=== PATIENT | male | born 1965 | race Caucasian/White ===

== ENCOUNTER 2024-09-11 02:41 | Inpatient (IN) | payer SELFPAY ==
[~2024-09-11] VITALS: Ht 172.7 cm; Wt 103.5 kg
[2024-09-11] VITALS (39 sets, daily range): BP systolic 124–172; BP diastolic 68–92; PULSE 80–102; RESP 15–27; TEMP 36.6–37.2; O2SAT 97–100
[2024-09-11] MEDS: LABETALOL 5MG/ML 4ML INJ IV ONE (03:40)
[2024-09-11 04:10] LABS: BASOPHILS % 0.8 % (0.0-2.0); EOSINOPHILS % 1.8 % (0.0-5.0); HEMATOCRIT. 28.7 % (42.0-52.0); HEMOGLOBIN. 8.9 g/dL (14.0-18.0); LYMPHOCYTES % 13.4 % (20.0-50.0); MEAN CORPUSCULAR HEMOGLOBIN 29.2 pg (28.0-32.0); MEAN CORPUSCULAR HGB CONC 30.9 g/dL (31.0-37.0); MEAN CORPUSCULAR VOLUME 94.5 fL (80.0-94.0); MEAN PLATELET VOLUME 12.6 fl (7.4-10.4); MONOCYTES % 2.9 % (2.0-8.0); NEUTROPHILS % 81.1 % (40.0-76.0); PLATELET 117 x1000/uL (130-400); RED BLOOD CELL COUNT 3.04 mill/uL (4.7-6.1); RED CELL DISTRIBUTION WIDTH 16.4 % (11.6-14.6); WHITE BLOOD COUNT 11.7 x1000/uL (4.5-11.0)
[2024-09-11 04:18] LABS: CHLORIDE 113 mEq/L (98-107); SODIUM 143 mEq/L (136-145)
[2024-09-11 04:19] LABS: CARBON DIOXIDE 15 mEq/L (21-32)
[2024-09-11 04:24] LABS: GLUCOSE 127 mg/dL (70-105); UREA NITROGEN BLOOD 73 mg/dL (9-23)
[2024-09-11 04:25] LABS: TROPONIN I HIGH SENSITIVITY 31 ng/L (3.0-53)
[2024-09-11] MEDS ORDERED: NICARDIPINE 40MG/200ML PREMIX 200 ML IV ONE (04:45)
[2024-09-11 05:05] LABS: CREATININE 6.1 mg/dL (0.6-1.3)
[2024-09-11] MEDS: NICARDIPINE 40MG/200ML PREMIX 200 ML IV PRN (05:14)
[2024-09-11 06:03] LABS: TROPONIN I HIGH SENSITIVITY 36 ng/L (3.0-53)
[2024-09-11 08:24] LABS: TROPONIN I HIGH SENSITIVITY 39 ng/L (3.0-53)
[2024-09-11] MEDS ORDERED: ONDANSETRON HCL 4MG/2ML INJ IV PRN (10:45)
[2024-09-11] MEDS ORDERED: ACETAMINOPHEN 325MG TABLET PO PRN (10:45)
[2024-09-11] MEDS: CEFTRIAXONE 1GM/50ML 50 ML IV SCH (13:02)
[2024-09-11 13:08] LABS: CREATINE KINASE 93 IU/L (46-171)
[2024-09-11] MEDS: ISOSORBIDE MONONITRATE 30MG TABLET SR 24HR PO SCH (13:18)
[2024-09-11] MEDS: HYDRALAZINE HCL 25MG TABLET PO SCH (15:44)
[2024-09-11 17:59] LABS: CLARITY URINE CLEAR (CLEAR); COLOR URINE YELLOW (YELLOW); GLUCOSE URINE 1+ (NEGATIVE); KETONES URINE NEGATIVE (NEGATIVE); LEUKOCYTE ESTERASE URINE NEGATIVE (NEGATIVE); NITRITE URINE NEGATIVE (NEGATIVE); OCCULT BLOOD URINE TRACE (NEGATIVE); PROTEIN URINE 3+ (NEGATIVE); SPECIFIC GRAVITY URINE 1.011 (1.005-1.030); UROBILINOGEN URINE 0.2 E.U./dL (0.2-1.0)
[2024-09-11 19:12] LABS: BACTERIA URINE TRACE; RBC URINE 0-2 /hpf (0-2); SQUAMOUS EPITHELIAL CELL URINE RARE /lpf (RARE/1+); WBC URINE 0-2 /hpf (0-2)
[2024-09-11] MEDS: FUROSEMIDE 40MG/4ML VIAL IVP SCH (21:40)
[2024-09-12] VITALS (82 sets, daily range): BP systolic 130–191; BP diastolic 63–124; PULSE 65–118; RESP 13–28; TEMP 36.6–37.1; O2SAT 95–100
[2024-09-12 06:29] LABS: BASOPHILS % 0.6 % (0.0-2.0); EOSINOPHILS % 1.7 % (0.0-5.0); HEMATOCRIT. 23.6 % (42.0-52.0); HEMOGLOBIN. 7.8 g/dL (14.0-18.0); LYMPHOCYTES % 26.4 % (20.0-50.0); MEAN CORPUSCULAR HEMOGLOBIN 31.5 pg (28.0-32.0); MEAN CORPUSCULAR HGB CONC 33.1 g/dL (31.0-37.0); MEAN CORPUSCULAR VOLUME 95.2 fL (80.0-94.0); MEAN PLATELET VOLUME 12.5 fl (7.4-10.4); MONOCYTES % 6.5 % (2.0-8.0); NEUTROPHILS % 64.8 % (40.0-76.0); PLATELET 94 x1000/uL (130-400); RED BLOOD CELL COUNT 2.48 mill/uL (4.7-6.1); RED CELL DISTRIBUTION WIDTH 15.7 % (11.6-14.6); WHITE BLOOD COUNT 7.6 x1000/uL (4.5-11.0)
[2024-09-12 06:31] LABS: POTASSIUM 5.2 mEq/L (3.5-5.1)
[2024-09-12 06:32] LABS: CALCIUM 8.2 mg/dL (8.7-10.4)
[2024-09-12 06:55] LABS: CREATININE 6.3 mg/dL (0.6-1.3)
[2024-09-12] MEDS: SODIUM BICARBONATE 650MG TABLET PO SCH (09:31)
[2024-09-12] MEDS: SODIUM POLYSTYRENE SULFONATE 15 G/60 ML BOT PO NR (09:31)
[2024-09-12] MEDS: NICARDIPINE 40MG/200ML PREMIX 200 ML IV PRN (12:04)
[2024-09-12] MEDS: CEFTRIAXONE 1GM/50ML 50 ML IV SCH (13:10)
[2024-09-13] VITALS (87 sets, daily range): BP systolic 117–194; BP diastolic 59–103; PULSE 75–112; RESP 10–28; TEMP 36.8–37.1; O2SAT 91–100
[2024-09-13 07:25] LABS: BASOPHILS % 0.8 % (0.0-2.0); EOSINOPHILS % 2.4 % (0.0-5.0); HEMATOCRIT. 28.3 % (42.0-52.0); HEMOGLOBIN. 9.2 g/dL (14.0-18.0); LYMPHOCYTES % 22.3 % (20.0-50.0); MEAN CORPUSCULAR HEMOGLOBIN 30.9 pg (28.0-32.0); MEAN CORPUSCULAR HGB CONC 32.6 g/dL (31.0-37.0); MEAN CORPUSCULAR VOLUME 94.9 fL (80.0-94.0); MONOCYTES % 5.5 % (2.0-8.0); PLATELET 121 x1000/uL (130-400); RED BLOOD CELL COUNT 2.98 mill/uL (4.7-6.1); RED CELL DISTRIBUTION WIDTH 15.4 % (11.6-14.6); WHITE BLOOD COUNT 9.1 x1000/uL (4.5-11.0)
[2024-09-13 07:38] LABS: POTASSIUM 4.7 mEq/L (3.5-5.1)
[2024-09-13 07:40] LABS: CALCIUM 8.1 mg/dL (8.7-10.4)
[2024-09-13 07:52] LABS: CREATININE 6.2 mg/dL (0.6-1.3)
[2024-09-13] MEDS ORDERED: NIFEDIPINE XL 30MG TAB PO SCH (09:00)
[2024-09-13] MEDS: ISOSORBIDE MONONITRATE 30MG TABLET SR 24HR PO SCH (09:16)
[2024-09-13] MEDS: ISOSORBIDE MONONITRATE 60MG TABLET SR 24HR PO SCH (10:57)
[2024-09-13] MEDS: NIFEDIPINE XL 60MG TAB PO SCH (10:57)
[2024-09-13] MEDS: HYDRALAZINE HCL 25MG TABLET PO SCH (14:24)
[2024-09-14] VITALS (65 sets, daily range): BP systolic 96–170; BP diastolic 63–145; PULSE 76–110; RESP 14–31; TEMP 36.8–37.1; O2SAT 94–99
[2024-09-14 07:07] LABS: POTASSIUM 4.5 mEq/L (3.5-5.1)
[2024-09-14 07:18] LABS: CREATININE 6.8 mg/dL (0.6-1.3)
[2024-09-14] MEDS: ISOSORBIDE MONONITRATE 60MG TABLET SR 24HR PO ONE (08:30)
[2024-09-14 08:31] LABS: BASOPHILS % 0.8 % (0.0-2.0); EOSINOPHILS % 3.3 % (0.0-5.0); HEMATOCRIT. 25.3 % (42.0-52.0); HEMOGLOBIN. 8.2 g/dL (14.0-18.0); LYMPHOCYTES % 22.6 % (20.0-50.0); MEAN CORPUSCULAR HEMOGLOBIN 30.4 pg (28.0-32.0); MEAN CORPUSCULAR HGB CONC 32.5 g/dL (31.0-37.0); MEAN CORPUSCULAR VOLUME 93.5 fL (80.0-94.0); MEAN PLATELET VOLUME 11.6 fl (7.4-10.4); MONOCYTES % 6.5 % (2.0-8.0); NEUTROPHILS % 66.8 % (40.0-76.0); PLATELET 114 x1000/uL (130-400); RED CELL DISTRIBUTION WIDTH 15.2 % (11.6-14.6); WHITE BLOOD COUNT 8.7 x1000/uL (4.5-11.0)
[2024-09-14] MEDS: CARVEDILOL 6.25 MG TABLET PO SCH (08:33)
[2024-09-14] MEDS: ISOSORBIDE MONONITRATE 30MG TABLET SR 24HR PO SCH (08:50)
[2024-09-14] MEDS: NICARDIPINE 50 MG in SODIUM CHLORIDE 0.9% 250 ML IV PRN (10:46)
[2024-09-14] MEDS ORDERED: SENNOSIDES 8.6MG TABLET PO PRN (11:45)
[2024-09-14] MEDS ORDERED: ENOXAPARIN 40MG/0.4ML SYR SUBCUT SCH (12:00)
[2024-09-14] MEDS: HYDRALAZINE HCL 25MG TABLET PO SCH (13:06)
[2024-09-15] VITALS (80 sets, daily range): BP systolic 104–181; BP diastolic 58–117; PULSE 79–107; RESP 14–34; TEMP 36.9–37.3; O2SAT 92–99
[2024-09-15 05:42] LABS: BASOPHILS % 0.5 % (0.0-2.0); EOSINOPHILS % 3.3 % (0.0-5.0); HEMATOCRIT. 25.5 % (42.0-52.0); HEMOGLOBIN. 8.5 g/dL (14.0-18.0); LYMPHOCYTES % 19.7 % (20.0-50.0); MEAN CORPUSCULAR HEMOGLOBIN 31.4 pg (28.0-32.0); MEAN CORPUSCULAR HGB CONC 33.4 g/dL (31.0-37.0); MEAN CORPUSCULAR VOLUME 94.2 fL (80.0-94.0); MEAN PLATELET VOLUME 10.2 fl (7.4-10.4); MONOCYTES % 6.5 % (2.0-8.0); PLATELET 108 x1000/uL (130-400); RED BLOOD CELL COUNT 2.71 mill/uL (4.7-6.1); RED CELL DISTRIBUTION WIDTH 15.1 % (11.6-14.6); WHITE BLOOD COUNT 9.7 x1000/uL (4.5-11.0)
[2024-09-15 06:07] LABS: CARBON DIOXIDE 16 mEq/L (21-32); CHLORIDE 113 mEq/L (98-107); POTASSIUM 4.8 mEq/L (3.5-5.1); SODIUM 142 mEq/L (136-145)
[2024-09-15 06:08] LABS: CALCIUM 8.4 mg/dL (8.7-10.4)
[2024-09-15 06:13] LABS: GLUCOSE 96 mg/dL (70-105); UREA NITROGEN BLOOD 70 mg/dL (9-23)
[2024-09-15 06:15] LABS: PHOSPHORUS 6.4 mg/dL (2.5-4.9)
[2024-09-15 07:32] LABS: CREATININE 6.9 mg/dL (0.6-1.3)
[2024-09-15] MEDS: FUROSEMIDE 40MG/4ML VIAL IVP SCH (08:16)
[2024-09-15] MEDS: SODIUM BICARBONATE 650MG TABLET PO SCH (08:16)
[2024-09-16] VITALS (89 sets, daily range): BP systolic 107–173; BP diastolic 60–105; PULSE 77–112; RESP 14–32; TEMP 36.8–37.3; O2SAT 92–98
[2024-09-16 07:53] LABS: BASOPHILS % 0.5 % (0.0-2.0); EOSINOPHILS % 3.2 % (0.0-5.0); HEMATOCRIT. 27.1 % (42.0-52.0); HEMOGLOBIN. 8.8 g/dL (14.0-18.0); LYMPHOCYTES % 19.5 % (20.0-50.0); MEAN CORPUSCULAR HEMOGLOBIN 30.7 pg (28.0-32.0); MEAN CORPUSCULAR HGB CONC 32.7 g/dL (31.0-37.0); MEAN CORPUSCULAR VOLUME 93.9 fL (80.0-94.0); MEAN PLATELET VOLUME 11.8 fl (7.4-10.4); MONOCYTES % 6.7 % (2.0-8.0); NEUTROPHILS % 70.1 % (40.0-76.0); PLATELET 122 x1000/uL (130-400); RED BLOOD CELL COUNT 2.88 mill/uL (4.7-6.1); WHITE BLOOD COUNT 9.8 x1000/uL (4.5-11.0)
[2024-09-16 08:07] LABS: CALCIUM 8.6 mg/dL (8.7-10.4); POTASSIUM 4.8 mEq/L (3.5-5.1)
[2024-09-16 08:16] LABS: CREATININE 6.8 mg/dL (0.6-1.3)
[2024-09-16] MEDS: MAGNESIUM 2 G PREMIX 50 ML IV NR (08:26)
[2024-09-16] MEDS: SEVELAMER CARBONATE 800 MG TABLET PO SCH (08:28)
[2024-09-16] MEDS: HYDRALAZINE HCL 100MG TABLET PO SCH (13:19)
[2024-09-16] MEDS: NIFEDIPINE XL 90MG TAB PO SCH (15:06)
[2024-09-16] MEDS: CARVEDILOL 12.5MG TABLET PO SCH (20:10)
[2024-09-17] VITALS (61 sets, daily range): BP systolic 106–153; BP diastolic 60–108; PULSE 77–102; RESP 15–29; TEMP 36.6–37.1; O2SAT 92–99
[2024-09-17 06:16] LABS: CALCIUM 8.7 mg/dL (8.7-10.4); CARBON DIOXIDE 17 mEq/L (21-32); CHLORIDE 109 mEq/L (98-107); POTASSIUM 5.2 mEq/L (3.5-5.1); SODIUM 140 mEq/L (136-145)
[2024-09-17 06:22] LABS: GLUCOSE 111 mg/dL (70-105); UREA NITROGEN BLOOD 84 mg/dL (9-23)
[2024-09-17 06:24] LABS: PHOSPHORUS 6.3 mg/dL (2.5-4.9)
[2024-09-17 06:37] LABS: BASOPHILS % 0.6 % (0.0-2.0); EOSINOPHILS % 2.7 % (0.0-5.0); HEMATOCRIT. 24.5 % (42.0-52.0); HEMOGLOBIN. 8.1 g/dL (14.0-18.0); LYMPHOCYTES % 15.5 % (20.0-50.0); MEAN CORPUSCULAR HEMOGLOBIN 31.5 pg (28.0-32.0); MEAN CORPUSCULAR HGB CONC 33.2 g/dL (31.0-37.0); MEAN CORPUSCULAR VOLUME 94.7 fL (80.0-94.0); MEAN PLATELET VOLUME 12.1 fl (7.4-10.4); MONOCYTES % 7.5 % (2.0-8.0); NEUTROPHILS % 73.7 % (40.0-76.0); PLATELET 129 x1000/uL (130-400); RED BLOOD CELL COUNT 2.58 mill/uL (4.7-6.1); RED CELL DISTRIBUTION WIDTH 14.8 % (11.6-14.6); WHITE BLOOD COUNT 9.7 x1000/uL (4.5-11.0)
[2024-09-17 07:04] LABS: CREATININE 6.9 mg/dL (0.6-1.3)
[2024-09-17] MEDS ORDERED: SODIUM POLYSTYRENE SULFONATE 15 G/60 ML BOT PO ONE (08:00)
[2024-09-17] MEDS: SODIUM ZIRCONIUM CYCLOSILICATE 10GM/PACKET PO NR (08:07)
[2024-09-18] VITALS (7 sets, daily range): BP systolic 125–148; BP diastolic 71–86; PULSE 77–99; RESP 16–23; TEMP 36.3–36.9; O2SAT 95–99
[2024-09-18 10:35] LABS: BASOPHILS % 0.9 % (0.0-2.0); EOSINOPHILS % 3.7 % (0.0-5.0); HEMATOCRIT. 23.7 % (42.0-52.0); HEMOGLOBIN. 7.8 g/dL (14.0-18.0); LYMPHOCYTES % 17.5 % (20.0-50.0); MEAN CORPUSCULAR HEMOGLOBIN 31.3 pg (28.0-32.0); MEAN CORPUSCULAR HGB CONC 32.8 g/dL (31.0-37.0); MEAN CORPUSCULAR VOLUME 95.5 fL (80.0-94.0); MEAN PLATELET VOLUME 11.9 fl (7.4-10.4); MONOCYTES % 6.7 % (2.0-8.0); NEUTROPHILS % 71.2 % (40.0-76.0); PLATELET 113 x1000/uL (130-400); RED BLOOD CELL COUNT 2.48 mill/uL (4.7-6.1); RED CELL DISTRIBUTION WIDTH 14.9 % (11.6-14.6)
[2024-09-18 10:49] LABS: POTASSIUM 5.1 mEq/L (3.5-5.1)
[2024-09-18 10:51] LABS: CALCIUM 8.5 mg/dL (8.7-10.4)
[2024-09-18 11:32] LABS: POTASSIUM 5.1 mEq/L (3.5-5.1)
[2024-09-18 11:34] LABS: CALCIUM 8.3 mg/dL (8.7-10.4)
[2024-09-18] MEDS: SODIUM ZIRCONIUM CYCLOSILICATE 10GM/PACKET PO NR (20:48)
[2024-09-19] VITALS: BP 146/85; PULSE 88; RESP 18; TEMP 36.6; O2SAT 96
[2024-09-19 04:00] VITALS: BP 146/82; PULSE 90; RESP 26; TEMP 36.7; O2SAT 98
[2024-09-19 07:21] LABS: BASOPHILS % 0.9 % (0.0-2.0); DIFFERENTIAL COMMENT 0; EOSINOPHILS % 4.2 % (0.0-5.0); HEMATOCRIT. 26.5 % (42.0-52.0); HEMOGLOBIN. 8.1 g/dL (14.0-18.0); LYMPHOCYTES % 22.3 % (20.0-50.0); MEAN CORPUSCULAR HEMOGLOBIN 31.7 pg (28.0-32.0); MEAN CORPUSCULAR HGB CONC 30.5 g/dL (31.0-37.0); MEAN CORPUSCULAR VOLUME 103.8 fL (80.0-94.0); MEAN PLATELET VOLUME 11.7 fl (7.4-10.4); MONOCYTES % 9.6 % (2.0-8.0); PLATELET 87 x1000/uL (130-400); RED BLOOD CELL COUNT 2.55 mill/uL (4.7-6.1); RED CELL DISTRIBUTION WIDTH 15.7 % (11.6-14.6); WHITE BLOOD COUNT 8.2 x1000/uL (4.5-11.0)
[2024-09-19 08:20] LABS: POTASSIUM 4.9 mEq/L (3.5-5.1)
[2024-09-19 08:21] LABS: CALCIUM 8.5 mg/dL (8.7-10.4)
[2024-09-19 08:38] LABS: CREATININE 6.6 mg/dL (0.6-1.3)
[2024-09-19 12:00] VITALS: BP 137/76; PULSE 79; RESP 26; TEMP 36.8; O2SAT 98
[2024-09-19 15:44] VITALS: BP 132/82; PULSE 85; TEMP 98.2; O2SAT 98
[2024-09-19] MEDS ORDERED: ISOS120T13 PO (16:39)
[2024-09-19] MEDS ORDERED: NIFE90TA60 MT (16:39)
[2024-09-19] MEDS ORDERED: CARV25TA47 MT (16:39)
[2024-09-19] MEDS ORDERED: HYDR100T11 MT (16:39)
== END 2024-09-19 17:00 | disposition home or self-care (01) | DRG 133 ==
LOC: ER 02:41 → EDBD 02:41 → CVICU 04:45 → 3WST 09-17 23:11
PROVIDERS: ADMIT Internal Medicine; ATTEND Internal Medicine
DX: J96.01 Acute respiratory failure with hypoxia (principal); D69.6 Thrombocytopenia, unspecified; I16.1 Hypertensive emergency; E11.22 Type 2 diabetes mellitus with diabetic chronic kidney disease; I12.9 Hypertensive chronic kidney disease with stage 1 through stage 4 chronic kidney disease, or unspecified chronic kidney disease; D64.9 Anemia, unspecified; E87.0 Hyperosmolality and hypernatremia; N18.9 Chronic kidney disease, unspecified; E87.20 Acidosis, unspecified; N17.9 Acute kidney failure, unspecified; E83.39 Other disorders of phosphorus metabolism; R65.10 Systemic inflammatory response syndrome (SIRS) of non-infectious origin without acute organ dysfunction; E83.42 Hypomagnesemia; E87.70 Fluid overload, unspecified; E87.5 Hyperkalemia; D72.829 Elevated white blood cell count, unspecified; K59.00 Constipation, unspecified; J98.11 Atelectasis
CPT/HCPCS: 36415; 71045; 76770; 80048; 81003; 82550; 83735; 83880; 84100; 84145; 84484; 85025; 93005; 93306; 99291; A4606; J0696; J1940; J3475; J3490; J7050